=== PATIENT | female | born 1950 | race Caucasian/White ===

== ENCOUNTER 2017-02-04 12:52 | Emergency (ER) | payer OTHER ==
[2017-02-04 13:20] VITALS: TEMP 98.1
--- NOTE | 2017-02-04 14:54 | EDPHY ---
H & P Stated Complaint: right knee pain x 2wks , swelling x 3 days , decreased ambu today Time Seen by Provider: 02/04/17 13:45 HPI/ROS: HPI CHIEF COMPLAINT: Knee Pain, Knee swelling. HISTORY OF PRESENT ILLNESS: This patient very pleasant 66-year-old female significant past medical history for diverticulitis and anemia, remote history of significant trauma to her bilateral lower extremity requiring limb preservation surgery. Patient presents emergency room with right knee pain this been pretty bad for the past week. Dull ache. No trauma. Denies fever. Redness. Pain is worse with range of motion and bearing weight on the knee. Past Medical History: Anemia, diverticulitis Past Surgical History: Remote traumatic injuries to both bilateral lower extremities requiring limb preservation surgery Social History: Noncontributory Family History: Noncontributory ROS REVIEW OF SYSTEMS: A comprehensive 10 point review of systems is otherwise negative aside from elements mentioned in the history of present illness. Exam Constitutional triage nursing summary reviewed, vital signs reviewed, awake/ alert. Eyes normal conjunctivae and sclera, EOMI, PERRLA. HENT normal inspection, atraumatic, moist mucus membranes, no epistaxis, neck supple/ no meningismus, no raccoon eyes. Respiratory clear to auscultation bilaterally, normal breath sounds, no respiratory distress, no wheezing. Cardiovascular rate normal, regular rhythm, no murmur, no edema, distal pulses normal. Gastrointestinal soft, non-tender, no rebound, no guarding, normal bowel sounds, no distension, no pulsatile mass. Genitourinary no CVA tenderness. Musculoskeletal right leg: Neurovascularly intact warm extremity good cap refill, good pulse. Full range of motion of the right knee. No crepitus. There is mild swelling. Very mild. No erythema. This is a good cap refill, warm extremity good distal pulse. no midline vertebral tenderness, full range of motion, no calf swelling, no tenderness of extremities, no meningismus, good pulses, neurovascularly intact. Skin pink, warm, & dry, no rash, skin atraumatic. Neurologic awake, alert and oriented x 3, AAOx3, moves all 4 extremities equally, motor intact, sensory intact, CN II-XII intact, normal cerebellar, normal vision, normal speech. Psychiatric normal mood/affect. Heme/Lymph/Immune no lymphadenopathy. Differential Diagnosis: Includes but is not limited to in a particular order osteoarthritis, doubt septic joint given range of motion no significant warmth, no fever, can range it fully. Gout, pseudogout. Medical Decision Making: Plan for this patient x-ray right knee. Anti- inflammatory pain medicine. Narcotic pain medicine if severe. Knee immobilizer. Orthopedic follow-up and referral. Re-evaluation: Here in the emergency room her x-ray has been reviewed shows severe tricompartment. Significant with severe osteoarthritis. Recommend knee immobilizer, close follow up with Orthopedics. No indication at this time to drain her knee. Anti-inflammatory pain medicine and narcotic pain medicine. Referral to Orthopedics. I believe patient would benefit from knee replacement. Source: Patient - Personal History Current Tetanus Diphtheria and Acellular Pertussis (TDAP): Yes Tetanus Vaccine Date: 2008 - Medical/Surgical History Hx Asthma: No Hx Chronic Respiratory Disease: No Hx Diabetes: No Hx Cardiac Disease: No Hx Renal Disease: No Hx Cirrhosis: No Hx Alcoholism: No Hx HIV/AIDS: No Hx Splenectomy or Spleen Trauma: No Other PMH: DIVERTICULITIS,THYROIDECTOMY,T&A,APPY,C SECTION. HERNIA REPAIR,lt KNEE November 2013, colon resection r/t diverticulitis., hysterectomy ,C section - Social History Smoking Status: Never smoked Constitutional: Initial Vital Signs Temperature (C) 36.7 C 02/04/17 13:00 Heart Rate 64 02/04/17 13:00 Respiratory Rate 20 02/04/17 13:00 Blood Pressure 143/81 H 02/04/17 13:00 O2 Sat (%) 93 02/04/17 13:00 O2 Delivery Mode Room Air Allergies/Adverse Reactions: ciprofloxacin [From Cipro] Allergy (Severe, Verified 02/04/17 13:23) Hives ciprofloxacin HCl [From Cipro] Allergy (Severe, Verified 02/04/17 13:23) Hives Penicillins Allergy (Severe, Verified 02/04/17 13:23) Swelling/neck,face,throat codeine [Codeine] Allergy (Intermediate, Verified 02/04/17 13:23) Hives erythromycin base [Erythromycin Base] Allergy (Intermediate, Verified 02/04/17 13:23) Other-Enter Comments latex [Latex] Allergy (Intermediate, Verified 02/04/17 13:23) Other-Enter Comments metronidazole [From Flagyl] Allergy (Intermediate, Verified 02/04/17 13:23) Hives Sulfa (Sulfonamide Antibiotics) Allergy (Intermediate, Verified 02/04/17 13:23) Hives fluconazole [From Diflucan] Allergy (Mild, Verified 02/04/17 13:23) "gave me yeast infection" aspirin Allergy (Verified 02/04/17 13:23) Home Medications: Medication Instructions Recorded Levothyroxine [Synthroid 50 mcg 50 mcg PO DAILY06 10/08/14 (*)] Cyanocobalamin [Vitamin B12 03/26/16 1000MCG/ML (*)] Hydrocodone/APAP 5/325 [[place] 1 - 2 tab PO Q4H PRN #10 tab 02/04/17 5/325] Ibuprofen [Motrin (*)] 800 mg PO ACHS #10 tab 02/04/17 Medical Decision Making - Diagnostics Imaging Results: Imaging Impressions Knee X-Ray 02/04/17 13:45 Impression: Moderate tricompartmental osteoarthritis worst in the patellofemoral compartment. Departure - Departure Disposition: Home, Routine, Self-Care Clinical Impression: Osteoarthritis of knee Qualifiers: Osteoarthritis type: primary Laterality: right Qualified Code(s): M17.11 - Unilateral primary osteoarthritis, right knee Condition: Good Instructions: Osteoarthritis (ED) Additional Instructions: 1. I recommend he follow up with Orthopedics. Please call their for an appointment. 2. Knee immobilizer for support. 3. Take anti-inflammatory pain medicine like ibuprofen. For mild pain. [place] for severe pain. Referrals: Louisa Paniagua MD [Primary Care Provider] - As per Instructions Gulshan Krueger MD [Medical Doctor] - As per Instructions Prescriptions: Hydrocodone/APAP 5/325 [[place] 5/325] 1 - 2 tab PO Q4H PRN #10 tab PRN Reason: Pain, Moderate Ibuprofen [Motrin (*)] 800 mg PO ACHS #10 tab
[2017-02-04 15:28] VITALS: BP 150/88; PULSE 60; RESP 16; O2SAT 100
== END 2017-02-04 15:26 | disposition home or self-care (01) ==
LOC: CED 12:52
DX: M17.11 Unilateral primary osteoarthritis, right knee (principal); Z91.040 Latex allergy status
CPT/HCPCS: 73562; 99283; L1830

== ENCOUNTER → 2017-04-22 | Outpatient (CLI) | payer OTHER | LOC: FIMAGING 08:43 | PROVIDERS: ATTEND Internal Medicine | DX: Z12.31 Encounter for screening mammogram for malignant neoplasm of breast (principal) | CPT/HCPCS: G0202 ==

== ENCOUNTER → 2018-06-16 | Outpatient (CLI) | payer OTHER | LOC: BRMIMAGING 14:40 | PROVIDERS: ATTEND Internal Medicine | DX: Z12.31 Encounter for screening mammogram for malignant neoplasm of breast (principal); Z80.3 Family history of malignant neoplasm of breast ==